=== PATIENT | male | born 1975 | race African-American/Black ===

== ENCOUNTER 2023-08-11 22:11 | Inpatient (IN) | payer OTHER ==
[~2023-08-11] VITALS: Ht 175.3 cm; Wt 117.9 kg
[2023-08-11 22:33] VITALS: BP 200/97; PULSE 84; RESP 18; TEMP 98.1; O2SAT 96
[2023-08-12] MEDS: LABETALOL 20 MG/4 ML VIAL IVP ONE (00:17)
[2023-08-12 00:39] LABS: BASOPHILS # (AUTO) 0.1 K/uL (0.00-0.22); BASOPHILS % (AUTO) 0.8 % (0.0-2.0); EOSINOPHILS # (AUTO) 0.4 K/uL (0-0.4); LYMPHOCYTES # (AUTO) 1.7 K/uL (2.0-11.5); MONOCYTES # (AUTO) 0.7 K/uL (0.8-1.0); MONOCYTES % (AUTO) 8.8 % (1.7-9.3)
[2023-08-12 00:50] LABS: EOSINOPHILS % (AUTO) 5.4 % (0.0-4.0); HEMATOCRIT 38.1 % (36-52); HEMOGLOBIN 12.8 g/dL (12.0-18.0); LYMPHOCYTES % (AUTO) 22.4 % (20.5-51.1); MEAN CORPUSCULAR HEMOGLOBIN 30 pg (27-31); MEAN CORPUSCULAR HGB CONC 34 g/dL (33-37); MEAN CORPUSCULAR VOLUME 87.6 fL (80-94); NEUTROPHILS # (AUTO) 4.8 K/uL (1.8-7.7); NEUTROPHILS % (AUTO) 62.6 % (42.2-75.2); PLATELET COUNT (AUTO) 170 K/uL (140-450); RED BLOOD CELL COUNT(AUTO) 4.35 MIL/uL (4.20-6.10); WHITE BLOOD COUNT (AUTO) 7.7 K/uL (4.8-10.8)
[2023-08-12 00:53] LABS: ANION GAP 7.2 (8-16); CALCIUM 8.5 mg/dL (8.5-10.1); CARBON DIOXIDE 31.7 mmol/L (21-32); CREATININE 1.8 mg/dL (0.6-1.3); POTASSIUM 3.9 mmol/L (3.5-5.1)
[2023-08-12 01:47] LABS: AMPHETAMINE, URINE NEGATIVE ng/ml (NEG <=1000); BARBITURATE, URINE NEGATIVE ng/ml (NEG <=200); BENZODIAZEPINE, URINE NEGATIVE ng/mL (NEG <=200); CANNABINOID, URINE NEGATIVE ng/mL (NEG <=50); COCAINE, URINE NEGATIVE ng/mL (NEG <=300); OPIATE, URINE NEGATIVE ng/mL (NEG <=2000); PHENCYCLIDINE SCREEN,URINE NEGATIVE ng/mL (NEG <=25)
[2023-08-12] MEDS: NITROGLYCERIN 0.4 MG TAB SL ONE (03:15)
[2023-08-12] MEDS ORDERED: METF-346 PO (03:16)
[2023-08-12] MEDS ORDERED: FUROSEMIDE 20 MG/2 ML VIAL IVP ONE (07:04)
[2023-08-12] MEDS: FUROSEMIDE 20 MG/2 ML VIAL IVP ONE (07:12)
[2023-08-12] MEDS ORDERED: ONDANSETRON 4 MG/2 ML VIAL IVP PRN (07:35)
[2023-08-12] MEDS ORDERED: KCL 20 MEQ IN 100 mL PREMIX 200 ML IV PRN (07:35)
[2023-08-12] MEDS ORDERED: MORPHINE SULFATE 2 MG/ML SYR IVP PRN (07:35)
[2023-08-12] MEDS ORDERED: MAG SULF 2000 MG/WATER PREMIX 50 ML IV PRN (07:35)
[2023-08-12] MEDS ORDERED: MAGNESIUM OXIDE 400 MG TAB PO PRN (07:35)
[2023-08-12] MEDS: DOCUSATE SODIUM 100 MG GELCAP PO SCH (09:29)
[2023-08-12] MEDS: FUROSEMIDE 40 MG/4 ML VIAL IVP SCH (09:34)
[2023-08-12] MEDS ORDERED: hydrALAZINE 20 MG/ML VIAL ONE (10:17)
[2023-08-12] MEDS: hydrALAZINE 20 MG/ML VIAL IVP PRN (10:25)
[2023-08-12] MEDS: METOPROLOL 5 MG/5 ML VIAL IV PRN (13:59)
[2023-08-12] MEDS ORDERED: DEXTROSE 50% 50 ML SYR IVP PRN (15:40)
[2023-08-12] MEDS: CLONIDINE HYDROCHLORIDE 0.1 MG TAB PO PRN (16:22)
[2023-08-12 16:30] VITALS: PULSE 82; RESP 18; O2SAT 99
[2023-08-12] MEDS: BLOOD GLUCOSE MONITORING 1 DEV DEV FS SCH (16:30)
[2023-08-12] MEDS: INSULIN LISPRO SLIDING SCALE 100 UNITS/ML VIAL SUBQ PRN (17:37)
[2023-08-12 20:00] VITALS: PULSE 67; PULSE 70; PULSE 86; RESP 18; RESP 20; TEMP 97.8; O2SAT 100; O2SAT 95
[2023-08-12] MEDS: ACETAMINOPHEN 325 MG TAB PO PRN (21:52)
[2023-08-13] VITALS: BP 169/95; PULSE 66; PULSE 68; RESP 18; TEMP 97.5; O2SAT 98
[2023-08-13] MEDS: HYDROcodone/APAP 5/325 MG 1 TAB TAB PO PRN (02:22)
[2023-08-13 04:00] VITALS: BP 203/89; PULSE 61; PULSE 70; RESP 18; TEMP 98.1; O2SAT 100
[2023-08-13 07:05] LABS: HEMATOCRIT 38.9 % (36-52); HEMOGLOBIN 13.3 g/dL (12.0-18.0); MEAN CORPUSCULAR HEMOGLOBIN 29 pg (27-31); MEAN CORPUSCULAR HGB CONC 34 g/dL (33-37); MEAN CORPUSCULAR VOLUME 86.1 fL (80-94); PLATELET COUNT (AUTO) 168 K/uL (140-450); RED BLOOD CELL COUNT(AUTO) 4.52 MIL/uL (4.20-6.10); WHITE BLOOD COUNT (AUTO) 7.3 K/uL (4.8-10.8)
[2023-08-13 07:06] LABS: BASOPHILS # (AUTO) 0.1 K/uL (0.00-0.22); EOSINOPHILS # (AUTO) 0.3 K/uL (0-0.4); EOSINOPHILS % (AUTO) 3.8 % (0.0-4.0); LYMPHOCYTES # (AUTO) 1.4 K/uL (2.0-11.5); LYMPHOCYTES % (AUTO) 18.5 % (20.5-51.1); MONOCYTES # (AUTO) 0.6 K/uL (0.8-1.0); MONOCYTES % (AUTO) 7.8 % (1.7-9.3); NEUTROPHILS % (AUTO) 68.9 % (42.2-75.2)
[2023-08-13 08:00] VITALS: BP 155/77; PULSE 55; PULSE 65; RESP 17; TEMP 98.3; O2SAT 100; O2SAT 99
[2023-08-13 08:01] LABS: POTASSIUM 3.2 mmol/L (3.5-5.1)
[2023-08-13 08:02] LABS: ANION GAP 10.5 (8-16); CALCIUM 8.7 mg/dL (8.5-10.1); CARBON DIOXIDE 30.7 mmol/L (21-32); CREATININE 1.8 mg/dL (0.6-1.3); TOTAL BILIRUBIN 0.6 mg/dL (0.0-1.0)
[2023-08-13 08:03] LABS: ALBUMIN 2.3 g/dL (3.4-5.0); TOTAL PROTEIN, SERUM 5.7 g/dL (6.4-8.2)
[2023-08-13] MEDS: METOPROLOL SUCCINATE 50 MG TABER PO SCH (09:11)
[2023-08-13] MEDS: lisinopriL 20 MG TAB PO SCH (09:11)
[2023-08-13] MEDS ORDERED: hydrALAZINE 20 MG/ML VIAL IVP PRN (09:55)
[2023-08-13] MEDS: NIFEdipine 60 MG TABER PO ONE (09:55)
[2023-08-13] MEDS: LABETALOL 200 MG TAB PO ONE (09:55)
[2023-08-13] MEDS: NIFEdipine 60 MG TABER PO SCH (11:37)
[2023-08-13] MEDS: LABETALOL 200 MG TAB PO SCH (11:37)
[2023-08-13 12:00] VITALS: BP 158/68; PULSE 55; PULSE 79; RESP 17; TEMP 98.3; O2SAT 99
[2023-08-13] MEDS: POTASSIUM CHLORIDE 10 MEQ TABER PO PRN (12:57)
[2023-08-13] MEDS ORDERED: TRA200 PO (13:57)
[2023-08-13] MEDS ORDERED: NIFE60TA39 PO (13:57)
[2023-08-13 14:28] VITALS: BP 146/77; PULSE 86; RESP 17; TEMP 98.2
[2023-08-13] MEDS ORDERED: MEDS-TO-BEDS MC SCH (21:00)
[2023-08-13] MEDS ORDERED: LABETALOL 200 MG TAB PO SCH (21:00)
[2023-08-14] MEDS ORDERED: NIFEdipine 60 MG TABER PO SCH (09:00)
== END 2023-08-13 16:00 | disposition home or self-care (01) | DRG 194 ==
LOC: MED 22:11 → MTU 08-12 06:26
PROVIDERS: ADMIT Hospitalist; ATTEND Hospitalist
DX: I13.0 Hypertensive heart and chronic kidney disease with heart failure and stage 1 through stage 4 chronic kidney disease, or unspecified chronic kidney disease (principal); N17.9 Acute kidney failure, unspecified; E44.1 Mild protein-calorie malnutrition; E11.22 Type 2 diabetes mellitus with diabetic chronic kidney disease; I50.33 Acute on chronic diastolic (congestive) heart failure; H53.2 Diplopia; N18.9 Chronic kidney disease, unspecified; E78.5 Hyperlipidemia, unspecified; E11.39 Type 2 diabetes mellitus with other diabetic ophthalmic complication; H49.9 Unspecified paralytic strabismus; I16.1 Hypertensive emergency; Z79.899 Other long term (current) drug therapy; Z68.38 Body mass index [BMI] 38.0-38.9, adult
CPT/HCPCS: 36415; 70450; 71045; 80048; 80053; 80305; 82948; 83036; 83735; 83880; 84484; 85025; 87081; 93005; 96374; 96375; 99291; J0360; J1644; J1815; J1940; J3490; Q9967